=== PATIENT | male | born 1965 ===

== ENCOUNTER → 2016-10-18 | Day surgery (SDC) | payer OTHER ==
[~2016-10-18] MED LIST: ACETAMINOPHEN/HYDROcodone 325 MG/5 MG TAB ONE; BUPIVACAINE/EPINEPHRINE 0.25% PF 30 ML VIAL ONE; KETOROLAC TROMETHAMINE 30 MG/ML (IVP) VIAL IV PUSH ONE; LACTATED RINGER'S 1000 ML INJ 1,000 ML ONE; LIDOCAINE 1%/EPINEPHrine 1:100,000 SOLN 20 ML VIAL ONE; MEPERIDINE HCL 50 MG/ML VIAL ONE; MIDAZOLAM HCL 2 MG/2 ML VIAL ONE; PROPOFOL 200 MG/20 ML AMP IV ONE; ceFAZolin 2 GM PREMIX 50 ML ONE
--- NOTE | 2016-10-18 12:58 | TN ---
cc: CHASE PUCKETT M.D. DATE OF SURGERY: 10/18/2016 PREOPERATIVE DIAGNOSIS Symptomatic left inguinal hernia. POSTOPERATIVE DIAGNOSIS Left indirect inguinal hernia, left spermatic cord lipoma. PROCEDURE Open repair left inguinal hernia with mesh. Excision spermatic cord lipoma. SURGEON Dr. Chase Puckett. SHEARER SCREEN MEASURER AND TRIMMER Dr. Regan Dodge. ANESTHESIA General. INDICATIONS This is a pleasant 51-year-old gentleman who has had multiple prior abdominal surgeries, who has noted a bulge in the left groin for 2 months. It created some discomfort with coughing, laughing and sitting. He has a significant history of necrotizing fasciitis including debridements, muscle flap coverage, colostomy, colostomy takedown and laparoscopic incisional hernia repair. Plans were made for a open repair with mesh. INTRAOPERATIVE FINDINGS Left indirect inguinal hernia, very thin sac with fatty tissue easily reduced. Moderate-sized spermatic cord lipoma excised and discarded. Estimated blood loss was minimal. DESCRIPTION OF PROCEDURE IN DETAIL The patient identified as Frank Sewell, taken to the operating room and placed in the supine position. Sequential compression devices were placed on bilateral lower extremities. Following induction of adequate general anesthesia the patient's left groin was prepped and draped in usual sterile fashion with Betadine. A time-out procedure was performed. Following completion of time-out procedure to everyone's satisfaction within the room the left groin incision proposed was infiltrated with local anesthetic. Incision was carried out with a scalpel and hemostasis controlled with electrocautery. Dissection continued posteriorly through Alexis's fascia to the level of external oblique fascia. More local anesthetic was placed beneath the left external oblique fascial fibers, they were opened in their direction using scalpel and Metzenbaum scissor. The ilioinguinal nerve branch was identified and left in its normal anatomic position. Spermatic cord and its contents were gently from surrounding tissues to the level of the pubic tubercle and isolated with a Armington drain. Some thinned anterior cremasteric fibers were divided with electrocautery and the anteromedial surface examined. There was an obvious large spermatic cord lipoma which was reduced from the spermatic cord to the level of the internal inguinal ring. It was cross-clamped at its base with a Sarah Beth clamp, the redundant fatty tissue was amputated and the base suture ligated with a 2-0 Vicryl suture ligature. The anteromedial surface again examined and now an indirect inguinal hernia sac was identified. It was reduced to the base of the spermatic cord, relieving the spermatic cord structures from the hernia sac. Hernia sac was opened, it was very thin and incarcerated fatty tissue was easily reduced with blunt dissection into the peritoneal cavity. The sac was suture ligated at its base with a 2-0 Vicryl suture ligature and redundant sac amputated with electrocautery. There was no further herniated contents. The inguinal floor was weak and bulging. Anatomic identification of the pubic tubercle and Jc's ligament, shelving edge of the inguinal ligament, internal oblique fascia was performed. The iliohypogastric nerve was identified and avoided. From a 3 x 6 inch piece of ProLite mesh the mesh was customized and incised and sutured into position with interrupted 0-Ethibond sutures. Sutures were placed above and below the pubic tubercle and to Jc's ligament and the shelving edge of the inguinal ligament inferiorly and laterally and loosely into the internal oblique fascia superiorly and medially. A slit was cut in the mesh laterally to allow for spermatic cord passage through the mesh. The tails were reapproximated lateral to the spermatic cord and tucked beneath the external oblique fascia. Single 0 Ethibond suture was used to approximate the mesh lateral to the spermatic cord, taking care not to strangle the spermatic cord. Copious irrigation was ensued. There was no evidence of bleeding. Remaining local anesthetic was placed in and around the cord structures. The external oblique fascia was closed with running 2-0 Vicryl suture taking care to avoid the ilioinguinal and iliohypogastric nerve branches. The single 2-0 Vicryl was placed in Alexis's fascia. Skin was approximated with a running 4-0 Monocryl subcuticular suture. Dressings were applied with Mastisol, half-inch brown Steri-Strips, gauze and Tegaderm. The patient tolerated the procedure without apparent complication. Sponge, needle and instrument counts were correct at the end of the case. MD RIKY Mercado/MERLY /12:08 PM /12:45 PM
== END | disposition home or self-care (01) ==
LOC: ESDC 09:14
PROVIDERS: ATTEND Surgery Trauma Surgery
DX: K40.90 Unilateral inguinal hernia, without obstruction or gangrene, not specified as recurrent (principal); D17.6 Benign lipomatous neoplasm of spermatic cord
CPT/HCPCS: 00830; 49505; 55520; C1781; J0690; J1885; J2175; J2250; J3010; J7120